=== PATIENT | male | born 1935 | race Caucasian/White ===

== ENCOUNTER 2019-02-05 14:46 | Emergency (ER) | payer OTHER ==
[~2019-02-05] VITALS: Ht 180.3 cm; Wt 86.2 kg
[~2019-02-05 14:46] MED LIST: ACETYLCYST200 MG/1 M PO; AUGMENTIN 875875 MG PO; AVODART0.5 MG PO; HYTRIN10 MG PO; NORVASC 5 MG TAB5 MG PO; PYRIDIUM200 MG PO; avadart; zocor
[2019-02-05] MEDS ORDERED: FLOMAX0.4 MG PO (15:49)
[2019-02-05 15:56] LABS: URINE BILIRUBIN NEGATIVE (Negative); URINE BLOOD TRACE (Negative); URINE CLARITY CLEAR; URINE COLOR YELLOW; URINE GLUCOSE-RANDOM* NEGATIVE (Negative); URINE KETONES NEGATIVE (Negative); URINE LEUKOCYTES-REFLEX NEGATIVE (Negative); URINE NITRITE-REFLEX NEGATIVE (Negative); URINE PROTEIN (DIPSTICK) 1+ (Negative); URINE SPECIFIC GRAVITY 1.015 (1.005-1.035); URINE UROBILINOGEN 0.2 E.U./dl (0.2-1.0)
[2019-02-05 16:06] LABS: BACTERIA-REFLEX None Seen /HPF (None Seen); CASTS None Seen /LPF (None Seen); SQUAMOUS 0-3 Few /LPF (0-3); URINE WBC-REFLEX 0-5 Rare /HPF (0-5)
[2019-02-05 16:07] LABS: AMORPHOUS PHOSPHATES Moderate /LPF (None Seen); URINE RBC 0-2 Rare /HPF (0-2)
[2019-02-05 16:40] VITALS: BP 140/72
[2019-02-06] MEDS ORDERED: AUGMENTIN 875-1 EACH PO (20:04)
== END 2019-02-05 16:48 | disposition home or self-care (01) ==
LOC: ER 14:46
PROVIDERS: Emergency Medicine
DX: N40.1 Benign prostatic hyperplasia with lower urinary tract symptoms (principal); R33.9 Retention of urine, unspecified

== ENCOUNTER 2019-02-06 18:35 | Emergency (ER) | payer OTHER ==
[~2019-02-06] VITALS: Ht 177.8 cm; Wt 88.5 kg
[~2019-02-06 18:35] MED LIST changes: +FLOMAX0.4 MG PO
[2019-02-06 20:02] LABS: URINE BILIRUBIN NEGATIVE (Negative); URINE BLOOD 3+ (Negative); URINE COLOR YELLOW; URINE GLUCOSE-RANDOM* NEGATIVE (Negative); URINE KETONES NEGATIVE (Negative); URINE LEUKOCYTES-REFLEX TRACE (Negative); URINE NITRITE-REFLEX NEGATIVE (Negative); URINE PROTEIN (DIPSTICK) 2+ (Negative); URINE SPECIFIC GRAVITY >= 1.030 (1.005-1.035); URINE UROBILINOGEN 0.2 E.U./dl (0.2-1.0)
[2019-02-06] MEDS ORDERED: AUGMENTIN 875-1 EACH PO (20:04)
[2019-02-06 20:06] LABS: URINE CLARITY CLOUDY
[2019-02-06 20:11] LABS: SQUAMOUS None Seen /LPF (0-3); URINE WBC-REFLEX 0-5 Rare /HPF (0-5)
[2019-02-06 20:12] LABS: CASTS None Seen /LPF (None Seen); CRYSTALS None Seen /LPF (None Seen); URINE RBC >20 Many /HPF (0-2)
[2019-02-06 20:13] LABS: YEAST-REFLEX Present (None Seen)
[2019-02-06 20:52] VITALS: BP 155/73
== END 2019-02-06 20:52 | disposition home or self-care (01) ==
LOC: ER 18:35
PROVIDERS: Nurse Practitioner Family
DX: N39.0 Urinary tract infection, site not specified (principal); I10 Essential (primary) hypertension; J45.909 Unspecified asthma, uncomplicated; Z90.89 Acquired absence of other organs

== ENCOUNTER 2019-02-14 06:35 | Emergency (ER) | payer OTHER ==
[~2019-02-14] VITALS: Ht 177.8 cm; Wt 88.5 kg
[~2019-02-14 06:35] MED LIST changes: -KEFLEX500 M1 PO
[2019-02-14 07:37] LABS: URINE BILIRUBIN NEGATIVE (Negative); URINE BLOOD TRACE (Negative); URINE CLARITY CLEAR; URINE COLOR YELLOW; URINE GLUCOSE-RANDOM* NEGATIVE (Negative); URINE KETONES NEGATIVE (Negative); URINE LEUKOCYTES-REFLEX NEGATIVE (Negative); URINE NITRITE-REFLEX NEGATIVE (Negative); URINE PROTEIN (DIPSTICK) NEGATIVE (Negative); URINE SPECIFIC GRAVITY 1.015 (1.005-1.035); URINE UROBILINOGEN 0.2 E.U./dl (0.2-1.0)
[2019-02-14 08:00] VITALS: BP 135/66
[2019-02-14] MEDS ORDERED: KEFLEX500 M1 PO (08:07)
== END 2019-02-14 08:15 | disposition home or self-care (01) ==
LOC: ER 06:35
PROVIDERS: Emergency Medicine
DX: R33.9 Retention of urine, unspecified (principal); R10.30 Lower abdominal pain, unspecified; I10 Essential (primary) hypertension; J45.909 Unspecified asthma, uncomplicated; Z90.49 Acquired absence of other specified parts of digestive tract

== ENCOUNTER 2019-02-14 21:21 | Emergency (ER) | payer OTHER ==
[~2019-02-14] VITALS: Ht 177.8 cm; Wt 88.5 kg
[~2019-02-14 21:21] MED LIST changes: +KEFLEX500 M1 PO
[2019-02-14 23:00] VITALS: BP 154/70
== END 2019-02-14 23:00 | disposition home or self-care (01) ==
LOC: ER 21:21
DX: T83.038A Leakage of other urinary catheter, initial encounter (principal); R33.9 Retention of urine, unspecified; J45.909 Unspecified asthma, uncomplicated; I10 Essential (primary) hypertension; Z79.899 Other long term (current) drug therapy; Z90.89 Acquired absence of other organs; Y92.89 Other specified places as the place of occurrence of the external cause

== ENCOUNTER → 2019-02-14 | Emergency (ER) | payer OTHER ==
[~2019-02-14] VITALS: Ht 177.8 cm; Wt 72.6 kg
[~2019-02-14] MED LIST changes: +AUGMENTIN 875-1 EACH PO; +KEFLEX500 M1 PO
[2019-02-14 12:00] VITALS: BP 127/77
== END ==
LOC: ER 11:59
DX: T83.038A Leakage of other urinary catheter, initial encounter (principal); I10 Essential (primary) hypertension; J45.909 Unspecified asthma, uncomplicated; Z90.49 Acquired absence of other specified parts of digestive tract